=== PATIENT | female | born 1985 | race Caucasian/White ===

== ENCOUNTER 2019-10-31 13:47 | Emergency (ER) | payer OTHER ==
--- NOTE | 2019-10-31 15:31 | EDM.PDOC ---
ED HPI GENERAL MEDICAL PROBLEM - General Chief Complaint: General Stated Complaint: RASH, UTI Time Seen by Provider: 10/31/19 15:24 Source of Information: Reports: Patient History Limitations: Reports: No Limitations - History of Present Illness Duration: Week(s): (1) Location: Reports: Generalized Quality: Reports: Ache Severity: Mild Improves with: Reports: None Worsens with: Reports: None Associated Symptoms: Reports: Fever/Chills, Rash. Denies: Headaches, Nausea/ Vomiting, Shortness of Breath low back Pain Score (Numeric/FACES): 6 - Related Data Allergies Allergy/AdvReac Type Severity Reaction Status Date / Time Latex, Natural Rubber Allergy Hives Verified 10/31/19 14:39 Home Meds: Home Meds . [No Known Home Meds] 10/31/19 [History] Past Medical History - Past Health History Medical/Surgical History: Denies Medical/Surgical History [employer] History: Reports: - Past Surgical History HEENT Surgical History: Reports: Oral Surgery Female Surgical History: Reports: LEEP, Tubal Ligation Social & Family History - Family History Family Medical History: Noncontributory - Tobacco Use Smoking Status *Q: Light Tobacco Smoker Years of Tobacco use: 10 Packs/Tins Daily: 0 - Recreational Drug Use Recreational Drug Use: No ED ROS GENERAL - Review of Systems Review Of Systems: Comprehensive ROS is negative, except as noted in HPI. ED EXAM, GENERAL - Physical Exam Exam: See Below Free Text/Narrative:: Exam: See Below Exam Limited By: No Limitations Head: Atraumatic Neck: Normal Inspection. No: Carotid Bruit, Lymphadenopathy (R) Respiratory/Chest: No Respiratory Distress, Lungs Clear, Normal Breath Sounds, No Accessory Muscle Use. No: Chest Non-Tender Cardiovascular: Normal Peripheral Pulses, Regular Rate, Rhythm, No Edema, No JVD GI/Abdominal: Normal Bowel Sounds, Tender. No: Non-Tender, Splenomegaly Back Exam: Normal Inspection. No: CVA Tenderness (R) Extremities: Normal Inspection. No: No Pedal Edema Neurological: Alert, Oriented, Normal Cognition Psychiatric: Normal Affect Skin Exam: Warm Lymphatic: No Adenopathy Exam Limited By: No Limitations General Appearance: Alert, No Apparent Distress Course - Vital Signs Last Recorded V/S: Last Vital Signs Temp 36.9 C 10/31/19 14:34 Pulse 63 10/31/19 14:34 Resp 18 10/31/19 14:34 BP 101/60 10/31/19 14:34 Pulse Ox 96 10/31/19 14:34 - Orders/Labs/Meds Labs: Laboratory Tests 10/31/19 10/31/19 Range/Units 15:06 15:06 Urine Color YELLOW Urine Appearance CLEAR Urine pH 7.0 (5.0-8.0) Ur Specific [place] 1.020 (1.001-1.035) Urine Protein NEGATIVE (NEGATIVE) mg/dL Urine Glucose (UA) NEGATIVE (NEGATIVE) mg/dL Urine Ketones TRACE H (NEGATIVE) mg/dL Urine Occult Blood MODERATE H (NEGATIVE) Urine Nitrite NEGATIVE (NEGATIVE) Urine Bilirubin NEGATIVE (NEGATIVE) Urine Urobilinogen 4.0 H (<2.0) EU/dL Ur Leukocyte Esterase NEGATIVE (NEGATIVE) Urine RBC 1-3 (0-2/HPF) Urine WBC 0-2 (0-5/HPF) Ur Epithelial Cells FEW (NONE-FEW) Urine Bacteria FEW (NEGATIVE) Urine Mucus LIGHT (NONE-MOD) Urine HCG, Qual NEGATIVE (NEGATIVE) - Re-Assessments/Exams Free Text/Narrative Re-Assessment/Exam: 10/31/19 17:03 Patient's urine shows her to have some ketones but no sign of infection. Her influenza is negative. I will start her on some Bactrim for her skin lesions which I think are more likely viral. She use antibiotic ointment on these. She is refusing me swabbing a largest one for possible zoster. Her lesions are diffuse and not clustered in one area. She is worried that they may be herpetic but they are not in a single dermatome. Patient is currently tearful and when questioned about this states that she still does not feel "well". Departure - Departure Time of Disposition: 17:05 Disposition: Home, Self-Care 01 Condition: Good Clinical Impression: Flu-like symptoms, Skin rash - Discharge Information Referrals: PCP,None [Primary Care Provider] - Forms: ED Department Discharge Additional Instructions: The following information is given to patients seen in the emergency department who are being discharged to home. This information is to outline your options for follow-up care. We provide all patients seen in our emergency department with a follow-up referral. The need for follow-up, as well as the timing and circumstances, are variable depending upon the specifics of your emergency department visit. If you don't have a primary care physician on staff, we will provide you with a referral. We always advise you to contact your personal physician following an emergency department visit to inform them of the circumstance of the visit and for follow-up with them and/or the need for any referrals to a consulting specialist. The emergency department will also refer you to a specialist when appropriate. This referral assures that you have the opportunity for follow-up care with a specialist. All of these measure are taken in an effort to provide you with optimal care, which includes your follow-up. Under all circumstances we always encourage you to contact your private physician who remains a resource for coordinating your care. When calling for follow-up care, please make the office aware that this follow-up is from your recent emergency room visit. If for any reason you are refused follow-up, please contact the [facility] Emergency Department at and asked to speak to the emergency department charge nurse. Sepsis Event Note - Evaluation Sepsis Screening Result: No Definite Risk - Focused Exam Vital Signs: Vital Signs Temp Pulse Resp BP Pulse Ox 10/31/19 14:34 36.9 C 63 18 101/60 96 Date Exam was Performed: 10/31/19 Time Exam was Performed: 17:00
== END 2019-10-31 17:15 | disposition home or self-care (01) ==
LOC: MW.ED 13:47
DX: R50.9 Fever, unspecified (principal); R21 Rash and other nonspecific skin eruption; R82.4 Acetonuria; F17.210 Nicotine dependence, cigarettes, uncomplicated
CPT/HCPCS: 81001; 81025; 87804; 99282; 99283